=== PATIENT | female | born 1935 | race Caucasian/White ===

== ENCOUNTER → 2019-07-16 11:12 | Outpatient (CLI) | payer MEDICARE, BC | END | disposition home or self-care (01) | LOC: D.CT 11:12 | PROVIDERS: ATTEND Internal Medicine Geriatric Medicine | DX: R93.89 Abnormal findings on diagnostic imaging of other specified body structures (principal); W01.0XXA Fall on same level from slipping, tripping and stumbling without subsequent striking against object, initial encounter ==